=== PATIENT | male | born 1955 | race Caucasian/White ===

== ENCOUNTER 2018-08-05 19:40 | Inpatient (IN) | payer OTHER ==
[~2018-08-05] VITALS: Ht 180.3 cm; Wt 101.5 kg
[~2018-08-05 19:40] MED LIST: AMARYL1 MG PO; ASPIRIN325; ASPIRIN325 PO; GLUCOPHAGE500 MG PO; JENTADUETO 2.51 EAC2 PO; LIPITOR40 MG PO; LOPRESSOR100 MG PO; NEURONTIN600 MG PO; PRAVACHOL40 MG PO; QUINU10 PD PO; TOPROL XL100 MG PO; ZOLOFT100 MG PO
[2018-08-05 19:41] VITALS: BP 99/48
[2018-08-05 20:18] LABS: HEMATOCRIT 29.6 % (42.0-52.0); MCH 30.2 pg (26.0-34.0); MCHC 33.7 g/dL (28.0-37.0); MCV 89.8 fL (80.0-100.0); RBC 3.3 mil/uL (4.50-6.00); RDW 13.8 % (10.5-14.5); WBC 10.7 thou/uL (4.0-11.0)
[2018-08-05 20:22] LABS: ANION GAP 12 mmol/L (7-16); BUN 51 mg/dL (7-18); CALCIUM 9.4 mg/dL (8.5-10.1); CHLORIDE 99 mmol/L (98-107); CO2 23 mmol/L (21-32); CREATININE 2.6 mg/dL (0.7-1.3); GLUCOSE 88 mg/dL (74-106); POTASSIUM 3.3 mmol/L (3.5-5.1); SODIUM 134 mmol/L (136-145)
[2018-08-05] MEDS ORDERED: ASPIR 8181 MG PO (20:25)
[2018-08-05 20:32] LABS: ALBUMIN 3.5 g/dL (3.4-5.0); SGOT 28 U/L (15-37); SGPT 27 U/L (30-65); TOTAL BILIRUBIN 0.4 mg/dL (<0.1-1.0); TOTAL PROTEIN 6.7 g/dL (6.4-8.2); TROPONIN-I <0.06 ng/mL (<0.06)
[2018-08-05 22:46] LABS: URINE BILIRUBIN NEGATIVE (Negative); URINE BLOOD NEGATIVE (Negative); URINE CLARITY CLEAR; URINE COLOR YELLOW; URINE GLUCOSE-RANDOM* NEGATIVE (Negative); URINE KETONES NEGATIVE (Negative); URINE LEUKOCYTES-REFLEX NEGATIVE (Negative); URINE NITRITE-REFLEX NEGATIVE (Negative); URINE PROTEIN (DIPSTICK) NEGATIVE (Negative); URINE UROBILINOGEN 0.2 E.U./dl (0.2-1.0)
[2018-08-06] VITALS (9 sets, daily range): BP systolic 90–125; BP diastolic 47–73
[2018-08-06] MEDS ORDERED: TRICOR145 MG PO (01:15)
[2018-08-06] MEDS ORDERED: IMDUR 30 MG TAB30 M1 PO (01:16)
[2018-08-06] MEDS ORDERED: AMITRIPTYLINE H25 M2 PO (01:18)
[2018-08-06] MEDS ORDERED: PIOGLITAZONE15 MG PO (01:19)
--- NOTE | 2018-08-06 02:00 | NUR ---
0040 ADMITTED PER CART FROM ER WITH FAMILY AT SIDE. A/O X4 BUT HAS SHORT TERM MEMORY LOSS. ORIENTED TO ROOM AND FLOOR POLICIES. ADMISSION PROCESS STARTED AND COMPLETED WITH FAMILY ASSIT. REVIEWED PLAN OF CARE FOR NOC. NOTIFIED [employer] DIRECTOR OF PATIENT ADMISSION AND COMPLETED MED REC. ALL SIDE RAILS UP X4 PER FAMILY REQUEST. WORKING ON GOALS AND PLAN OF CARE FOR NOC. CONTINUE TO ASSES CLOESLY.
[2018-08-06] MEDS ORDERED: LOPRESSOR50 PO (02:49)
--- NOTE | 2018-08-06 06:44 | NUR ---
SLEPT PAST ADMISSION PROCESS COMPLETE. FAMILY WENT HOME FOR NOC. DENIES COMPLAINTS THIS AM OF WAVY VISION OR DIZZINESS, BUT IS UNSTEADY WHEN UP TO COMODE. UP WITH ASSIST ONLY. CONTINUE TO ASSES CLOESLY.
[2018-08-06 07:05] LABS: CALCIUM 9.3 mg/dL (8.5-10.1); CREATININE 2.1 mg/dL (0.7-1.3); MAGNESIUM 1.6 mg/dL (1.8-2.4)
--- NOTE | 2018-08-06 11:37 | NUR ---
care of pt assumed this am @ ~0700. pt sleeping this am until his and daughter arrived, then awakened and enjoyed breakfast. pt denies co soa this am and on room air. pt co pain to lt shoulder, states that is the area he feel on several days ago, but no need for pain medication this am. pt denies n/v, but does co previous diarrhea (> 3 loose stools), but none observed by rn this am. gi consulted. isolation begun for ro cdiff per gi/dr. bailey. pt and staff aware of need for stool sample today. mri of head and [facility] [place] cancelled this am.
[2018-08-07 04:34] VITALS: BP 133/72
--- NOTE | 2018-08-07 05:41 | NUR ---
SLEPT MOST OF SHIFT. SHOWERED LAST NOC WITH ASSISTANCE. UP [facility] STANDBY ASSIST. MAINTAIN SAFE ENVIRONMENT. WORKING ON GOALS AND PLAN OF CARE FOR NOC. NOT PROGRESSING TOWARDS DISCHARGE GOALS AT THIS TIME. CONTINUE TO ASSES CLOESLY. 0544 POSITIVE BLOOD CULTURES. 0549 NOTIFIED FLASK PUSHER AND ORDERS RECIEVED
[2018-08-07 06:28] LABS: ALBUMIN 3.1 g/dL (3.4-5.0); MAGNESIUM 1.3 mg/dL (1.8-2.4); POTASSIUM 4.3 mmol/L (3.5-5.1)
[2018-08-07 06:29] LABS: CREATININE 1.1 mg/dL (0.7-1.3)
[2018-08-07 07:17] VITALS: BP 130/70
--- NOTE | 2018-08-07 08:42 | EKG ---
[place] [id number] [facility] [place] [address] ELECTROCARDIOGRAM REPORT Name: EDDI BROWN Room #: 363-P ADM IN M.R.#: [id number] ������������������ Admission: 08/05/18 ������������������ Attend Phys: Kayley Berkowitz Discharge: ������������������ Date of : 51 Report #: [id number] ����������������������������������������������������������������� [id number] THIS REPORT FOR: //name// [facility] ED Test Date: 2018-08-05 Test Time: 19:59:37 Pat Name: EDDI BROWN Department: Room: 363 Gender: M Documentation Billing Clerk: Dora ARZATE : 1955 Requested By: Nannette Rodriguez Order Number: [id number] MD: Yunior Cunha Measurements Intervals [place] Rate: 85 P: 33 MN: 149 QRS: 10 QRSD: 99 T: 99 QT: 345 QTc: 411 Interpretive Statements Sinus rhythm Nonspecific ST and T wave abnormality Compared to ECG 10/27/2012 00:07:30 Early repolarization now present Ventricular premature complex(es) no longer present Inferior Q waves less prominent Electronically Signed On 08-07-2018 8:42:32 CDT by Yunior Cunha [email or web address] ��������������������������������������������� <ELECTRONICALLY SIGNED> ���������������������������������������� By: Yunior Cunha MD, [facility] ��������������������������������������������� 08/07/18 0842 [id number] Yunior Cunha MD, [facility] /EPI
--- NOTE | 2018-08-07 11:20 | NUR ---
Nutrition: Received consult related to DM/YE. Dehydration, on IVFs. Current diet order heart healthy. Hx CABG, HTN, NIDDM, high chol. BG 115-213. Takes oral DM med at home, refused insulin here. States will eat what he wants. requested diet info. RD provided basic plate method information for DM/heart healthy diet. No A1C to evaluate. Pt did not listen to RD and plainly stated he wasnt listening. May consider adding carb controlled to diet order. Low nutrition risk at this time.
[2018-08-07 11:36] VITALS: BP 107/63
[2018-08-07 13:24] VITALS: BP 107/63
--- NOTE | 2018-08-07 14:07 | NUR ---
ASSUMED PATIENT CARE AT 0715. A&OX4. NO COMPLAINTS OF PAIN. PATIENT WANTING TO DC HOME. REFUSED INPATIENT COLONOSCOPY. WILL FOLLOW UP OUTPATIENT. CLEARED FOR DC. DISCHARGE TEACHING DONE WITH SPOUSE AND PATIENT. GOALS MET.
== END 2018-08-07 14:09 | disposition home or self-care (01) | DRG 683 ==
LOC: ER 19:40 → 3W 23:57 → EROBS 23:57 → 3W 08-06 00:31 → ENTRNSPT 08-07 13:51 → EDTRNSPTSTS 08-07 13:53 → 3W 08-07 14:09
PROVIDERS: Nurse Practitioner Acute Care; Student in an Organized Health Care Education/Training Program; ADMIT Hospitalist
DX: N17.9 Acute kidney failure, unspecified (principal); K52.1 Toxic gastroenteritis and colitis; R42 Dizziness and giddiness; I10 Essential (primary) hypertension; E78.5 Hyperlipidemia, unspecified; R33.9 Retention of urine, unspecified; F32.9 Major depressive disorder, single episode, unspecified; E86.0 Dehydration; E78.00 Pure hypercholesterolemia, unspecified; E87.6 Hypokalemia; R41.3 Other amnesia; E11.51 Type 2 diabetes mellitus with diabetic peripheral angiopathy without gangrene; I25.10 Atherosclerotic heart disease of native coronary artery without angina pectoris; R29.6 Repeated falls; T38.3X5A Adverse effect of insulin and oral hypoglycemic [antidiabetic] drugs, initial encounter; Y92.89 Other specified places as the place of occurrence of the external cause; Z86.73 Personal history of transient ischemic attack (TIA), and cerebral infarction without residual deficits; Z95.1 Presence of aortocoronary bypass graft; Z87.891 Personal history of nicotine dependence; Z90.49 Acquired absence of other specified parts of digestive tract; Z79.82 Long term (current) use of aspirin; Z79.84 Long term (current) use of oral hypoglycemic drugs; Z79.899 Other long term (current) drug therapy
CPT/HCPCS: 10879